=== PATIENT | female | born 1940 ===

== ENCOUNTER 2021-07-17 20:36 | Inpatient (IN) | payer MEDICARE, OTHER ==
[~2021-07-17] VITALS: Wt 53.8 kg
[2021-07-18 05:49] LABS: BASOPHILS ABSOLUTE AUTO 0.04 K/mm3 (0.00-0.23); BASOPHILS PERCENT AUTO 0 % (0-2); EOSINOPHILS ABSOLUTE AUTO 0.03 K/mm3 (0.00-0.68); EOSINOPHILS PERCENT AUTO 0 % (0-6); Hematocrit 29.8 % (33.0-51.0); Hemoglobin 9.9 g/dL (11.5-16.0); IMMATURE GRAN ABSOLUTE AUTO 0.07 K/mm3 (0.00-0.10); IMMATURE GRAN PERCENT AUTO 1 % (0-1); LYMPHOCYTES ABSOLUTE AUTO 1.03 K/mm3 (0.84-5.20); LYMPHOCYTES PERCENT AUTO 9 % (21-46); MONOCYTES ABSOLUTE AUTO 0.59 K/mm3 (0.16-1.47); MONOCYTES PERCENT AUTO 5 % (4-13); Mean Corpuscular HGB 31.7 pg (26.0-34.0); Mean Corpuscular HGB Conc 33.2 g/dL (31.5-36.5); Mean Corpuscular Volume 96 fL (80-100); Mean Platelet Volume 9.8 fL (9.1-12.4); NEUTROPHILS ABSOLUTE AUTO 9.49 K/mm3 (1.96-9.15); NEUTROPHILS PERCENT AUTO 84 % (41-73); Platelet Count 154 K/mm3 (150-400); RDW Coefficient Variation 13.1 % (11.7-14.2); RDW Standard Deviation 46.1 fL (35.1-46.3); Red Blood Cell Count 3.12 M/mm3 (3.80-5.20); White Blood Cell Count 11.25 K/mm3 (4.00-11.30)
[2021-07-18 06:38] LABS: Alanine Aminotransfer (ALT/SGP 24 U/L (12-78); Albumin, Blood 2.1 g/dL (3.4-5.0); Albumin/Globulin Ratio 0.7 (0.8-1.8); Alk Phos 64 U/L (50-136); Anion Gap 4 mmol/L (6-16); Aspartate Aminotrans (AST/SGOT 34 U/L (12-37); Bilirubin, Total 0.4 mg/dL (0.1-1.0); Blood Urea Nitrogen 15 mg/dL (8-24); Bun/Creatinine Ratio 17.4 (12.0-20.0); CO2, Blood 27 mmol/L (21-32); Calcium, Blood 8.3 mg/dL (8.5-10.1); Chloride, Blood 113 mmol/L (98-108); Creatinine, Blood 0.86 mg/dL (0.40-1.00); Globulin, Blood 3.1 g/dL (2.2-4.0); Glomerular Filtration Rate >60 (60-); Glucose, Blood 114 mg/dL (70-99); Potassium, Blood 4.1 mmol/L (3.5-5.5); Sodium, Blood 144 mmol/L (136-145); Total Protein, Blood 5.2 g/dL (6.4-8.2)
--- NOTE | 2021-07-18 06:42 | NUR ---
NUTRITIONAL YEAST SUPERVISOR SUMMARY/ ADMISSION PATIENT IA AA DIRECT ADMIT FOR DR. VALDES. SHE WAS BROUGHT IN BY THE EMS DROWSY, LEONILA REALLY RESPONDING TO ANY COMMANDS. DR VALDES WAS INFORMED OF HER ARRIVAL AND SHE CAME IN TO ASSESS AND PUT IN SOME ORDERS. HER SON WAS AVAILABLE TO ANSWER QUESTIONS. SHE WAS KEPT COMFORTABLE. VITALS WERE CHECKED AND RECORDED. NOT MAKING URINE AND SHE WAS BLADDER SCANNED AND >400MLS WAS GOTTEN AT THE 2ND ATTEMPT. MD INFORMED AND SAID IT WAS OK FOR STRAIGHT CATH, AND TO REASSESS AGAIN AFTER 6HRS. NO OTHER COMPLAINT AT THIS TIME.
--- NOTE | 2021-07-18 18:44 | NUR ---
PATIENT IS NON VERBAL, SMILES WHEN GOING TO ROOM. SPEECH EVAL ORDERED BY PROVIDER. NEW DIET ORDER IN PLACE. PT HAS 1 FULL WET DIAPER BEGINNING OF SHIFT AND A SECOND 1 FULL WET DIAPER. BLADDER SCAN 157 ML. Q2 TURN, BED LOWEST POSITION, ORAL SWAB.FAMILY AT BEDSIDE NO ACUTE CHANGES. NO SIGNS OF DISTRESS. REPORT GIVEN TO HEEL BOOM OPERATOR NURSE.
--- NOTE | 2021-07-19 04:44 | NUR ---
NURSING UNIT MANAGER SUMMARY PATIENT HAD A FAIR SHIFT. SHE HAS LOW GRADE FEVER OF WHICH SHE WAS GIVEN TYLENOL, AND COVERS REDUCED. OTHERWISE HER V/S WERE STABLE. WILL CONTINUE TO MONITOR HER.
[2021-07-19 08:40] LABS: BASOPHILS ABSOLUTE AUTO 0.05 K/mm3 (0.00-0.23); BASOPHILS PERCENT AUTO 1 % (0-2); EOSINOPHILS ABSOLUTE AUTO 0.05 K/mm3 (0.00-0.68); EOSINOPHILS PERCENT AUTO 1 % (0-6); Hematocrit 26.9 % (33.0-51.0); Hemoglobin 8.7 g/dL (11.5-16.0); IMMATURE GRAN ABSOLUTE AUTO 0.04 K/mm3 (0.00-0.10); IMMATURE GRAN PERCENT AUTO 1 % (0-1); LYMPHOCYTES ABSOLUTE AUTO 1.26 K/mm3 (0.84-5.20); LYMPHOCYTES PERCENT AUTO 15 % (21-46); MONOCYTES ABSOLUTE AUTO 0.49 K/mm3 (0.16-1.47); MONOCYTES PERCENT AUTO 6 % (4-13); Mean Corpuscular HGB 31.2 pg (26.0-34.0); Mean Corpuscular HGB Conc 32.3 g/dL (31.5-36.5); Mean Corpuscular Volume 96 fL (80-100); NEUTROPHILS ABSOLUTE AUTO 6.61 K/mm3 (1.96-9.15); NEUTROPHILS PERCENT AUTO 78 % (41-73); Platelet Count 136 K/mm3 (150-400); RDW Coefficient Variation 12.9 % (11.7-14.2); RDW Standard Deviation 45.7 fL (35.1-46.3); Red Blood Cell Count 2.79 M/mm3 (3.80-5.20)
--- NOTE | 2021-07-19 16:22 | NUR ---
SHIFT SUMMARY PATIENT IS ALERT AND ORIENTED TO SELF ONLY. PATIENT IS NONVERBAL AND SMILES WHEN PROVIDING CARE. HAS VISITED AND ASSISTS WITH CARE. PATIENT HAS HAD A COUPLE OF WET DIAPERS THIS SHIFT AND A SMALL BOWEL MOVEMENT. PATIENT NEEDS Q2 TURNS AND REQUIRES 2 PEOPLE TO MOVE PATIENT. NO ACUTE EVENTS THIS SHIFT. VITAL SIGNS REVIEWED. CALL LIGHT IN REACH. WILL MONITOR UNTIL SHIFT CHANGE.
--- NOTE | 2021-07-20 03:56 | NUR ---
PLATE PAINTER SUMMARY PATIENT STILL NOT ABLE TO EXPRESS NEEDS JUST YET BUT WAS ABLE TO TAKE MEDS. HER VITALS ARE STABLE. WILL CONTINUE TO MONITOR HER.
[2021-07-20 05:27] LABS: BASOPHILS ABSOLUTE AUTO 0.04 K/mm3 (0.00-0.23); BASOPHILS PERCENT AUTO 0 % (0-2); EOSINOPHILS ABSOLUTE AUTO 0.06 K/mm3 (0.00-0.68); EOSINOPHILS PERCENT AUTO 1 % (0-6); Hematocrit 29.3 % (33.0-51.0); Hemoglobin 9.4 g/dL (11.5-16.0); IMMATURE GRAN ABSOLUTE AUTO 0.06 K/mm3 (0.00-0.10); IMMATURE GRAN PERCENT AUTO 1 % (0-1); LYMPHOCYTES ABSOLUTE AUTO 1.15 K/mm3 (0.84-5.20); LYMPHOCYTES PERCENT AUTO 11 % (21-46); MONOCYTES ABSOLUTE AUTO 0.72 K/mm3 (0.16-1.47); MONOCYTES PERCENT AUTO 7 % (4-13); Mean Corpuscular HGB 31.2 pg (26.0-34.0); Mean Corpuscular HGB Conc 32.1 g/dL (31.5-36.5); Mean Corpuscular Volume 97 fL (80-100); Mean Platelet Volume 10.2 fL (9.1-12.4); NEUTROPHILS ABSOLUTE AUTO 8.29 K/mm3 (1.96-9.15); NEUTROPHILS PERCENT AUTO 80 % (41-73); Platelet Count 194 K/mm3 (150-400); RDW Coefficient Variation 12.9 % (11.7-14.2); RDW Standard Deviation 45.6 fL (35.1-46.3); Red Blood Cell Count 3.01 M/mm3 (3.80-5.20); White Blood Cell Count 10.32 K/mm3 (4.00-11.30)
[2021-07-20 06:23] LABS: Anion Gap 10 mmol/L (6-16); Blood Urea Nitrogen 16 mg/dL (8-24); Bun/Creatinine Ratio 20.7 (12.0-20.0); CO2, Blood 23 mmol/L (21-32); Calcium, Blood 8.2 mg/dL (8.5-10.1); Chloride, Blood 112 mmol/L (98-108); Creatinine, Blood 0.77 mg/dL (0.40-1.00); Glomerular Filtration Rate >60 (60-); Glucose, Blood 119 mg/dL (70-99); Potassium, Blood 3.4 mmol/L (3.5-5.5); Sodium, Blood 145 mmol/L (136-145)
--- NOTE | 2021-07-20 16:26 | NUR ---
SHIFT SUMMARY PATIENT IS NONVERBAL MOST OF THE TIME, WITH OCCASIONAL YES OR NO'S. PATIENT'S SPOUSE HAS BEEN PRESENT WITH THE PATIENT FOR MOST OF THIS SHIFT. THE PATIENT CONTINUES TO HAVE A SLIGHT FEVER. MEDICATED WITH TYLENOL PER EMAR, AND NON-PHARMACOLOGIC INTERVENTIONS WELL. PATIENT WORKED WITH SPEECH THERPAY THIS SHIFT. PLAN IS TO POSSIBLY DC BACK [facility] TOM[facility]. WILL CONTINUE TO CARE FOR THE PATIENT UNTIL SHIFT REPORT IS GIVEN TO THE ONCOMING NURSE.
--- NOTE | 2021-07-20 18:44 | NUR ---
SPOUSE [place] CONCERNED ABOUT [place] IF THE PATIENT IS DC'D. THE SPOUSE SAYS EARLIER DISCHARGE WOULD BE MOST CONVENIENT.
--- NOTE | 2021-07-21 05:05 | NUR ---
SUMMARY: PT ORIENTED TO SELF AND WAKEFUL TO VOICE BUT SLEPT MAJORITY OF NOCTE. SHE IS MOSTLY NONVERBAL BUT OCC ANSWERED SOME YES/NO Q'S. TURN SCHEDULE MAINTAINED AND ATTENDS CHANGE PRN FOR INCONTINENCE OF BOWEL AND BLADDER THIS SHIFT. IV ABX RECIEVED THEN SL. NO ACUTE CHANGES, VSS/AFEBRILE. PT TITRATED TO RA FOR SPO2>90%. PLAN IS TO POSSIBLY D/C BACK TO [facility] TODAY AND PT'S PREFERS THIS OCCUR EARLIER IN MORNING IF POSSIBLE D/T WINTER WEATH[place]. WILL ENSURE DAY STAFF ARE AWARE.
[2021-07-21 11:37] LABS: BASOPHILS ABSOLUTE AUTO 0.05 K/mm3 (0.00-0.23); BASOPHILS PERCENT AUTO 1 % (0-2); EOSINOPHILS ABSOLUTE AUTO 0.13 K/mm3 (0.00-0.68); EOSINOPHILS PERCENT AUTO 1 % (0-6); Hematocrit 25.1 % (33.0-51.0); Hemoglobin 8.3 g/dL (11.5-16.0); IMMATURE GRAN ABSOLUTE AUTO 0.08 K/mm3 (0.00-0.10); IMMATURE GRAN PERCENT AUTO 1 % (0-1); LYMPHOCYTES ABSOLUTE AUTO 1.35 K/mm3 (0.84-5.20); LYMPHOCYTES PERCENT AUTO 15 % (21-46); MONOCYTES ABSOLUTE AUTO 0.69 K/mm3 (0.16-1.47); MONOCYTES PERCENT AUTO 8 % (4-13); Mean Corpuscular HGB 31.9 pg (26.0-34.0); Mean Corpuscular HGB Conc 33.1 g/dL (31.5-36.5); Mean Corpuscular Volume 97 fL (80-100); Mean Platelet Volume 9.9 fL (9.1-12.4); NEUTROPHILS ABSOLUTE AUTO 6.76 K/mm3 (1.96-9.15); NEUTROPHILS PERCENT AUTO 75 % (41-73); NRBC ABSOLUTE 0.02 K/mm3 (0.00-0.02); NRBC Auto 0.2 /100 WBC (0.0-0.2); Platelet Count 240 K/mm3 (150-400); RDW Standard Deviation 45.1 fL (35.1-46.3); White Blood Cell Count 9.06 K/mm3 (4.00-11.30)
--- NOTE | 2021-07-21 18:32 | NUR ---
SHIFT SUMMARY: PT ALERT, UNABLE TO ASSESS ORIENTATION. SPEECH IS GARBLED WHICH IS BASELINE DUE TO ADVANCED DEMENTIA. PT HAD LOOSE STOOLS THIS AM AND STAFF AT [facility] REPORTED SHE IS LACTOSE INTOLERANT. DIET CHANGED TO REFLECT THIS AND BY AFTERNOON SHE HAD FORMED BROWN STOOLS. PT HAD LOW GRADE FEVER IN WHICH TYLENOL WAS EFFECTIVE IN TREATING. AFEBRILE REST OF SHIFT. PT ATE WELL AND DRANK FLUIDS T/OUT THE DAY.
--- NOTE | 2021-07-22 04:12 | NUR ---
POLO REMAINED STABLE DURING THE ASSOCIATE PROFESSOR, HAD A BM. SHE WAS ADMINISTERED HER AB AND OTHER MEDS. SHE IS STILL ON 4L AND SPO2 REMAINED IN THE 90'S
[2021-07-22 05:58] LABS: BASOPHILS ABSOLUTE AUTO 0.03 K/mm3 (0.00-0.23); BASOPHILS PERCENT AUTO 0 % (0-2); EOSINOPHILS PERCENT AUTO 1 % (0-6); Hematocrit 23.1 % (33.0-51.0); Hemoglobin 7.5 g/dL (11.5-16.0); IMMATURE GRAN PERCENT AUTO 1 % (0-1); LYMPHOCYTES ABSOLUTE AUTO 1.02 K/mm3 (0.84-5.20); LYMPHOCYTES PERCENT AUTO 12 % (21-46); MONOCYTES ABSOLUTE AUTO 0.55 K/mm3 (0.16-1.47); MONOCYTES PERCENT AUTO 6 % (4-13); Mean Corpuscular HGB 31.3 pg (26.0-34.0); Mean Corpuscular HGB Conc 32.5 g/dL (31.5-36.5); Mean Corpuscular Volume 96 fL (80-100); NEUTROPHILS ABSOLUTE AUTO 6.76 K/mm3 (1.96-9.15); NEUTROPHILS PERCENT AUTO 79 % (41-73); NRBC ABSOLUTE 0.02 K/mm3 (0.00-0.02); NRBC Auto 0.2 /100 WBC (0.0-0.2); Platelet Count 253 K/mm3 (150-400); RDW Coefficient Variation 12.8 % (11.7-14.2); RDW Standard Deviation 44.8 fL (35.1-46.3); White Blood Cell Count 8.56 K/mm3 (4.00-11.30)
--- NOTE | 2021-07-22 07:26 | NUR ---
CDIFF TEST DC'D DUE TO FORMED STOOLS SINCE LACTOSE FREE DIET GIVEN. STOOL DOES NOT HAVE FOUL SMELL IS FORMED AND BROWN COLORED.
[2021-07-22] MEDS ORDERED: ACET325 PO (13:23)
[2021-07-22] MEDS ORDERED: BISA10S PR (13:24)
[2021-07-22] MEDS ORDERED: MIRALAX1710 PO (13:24)
[2021-07-22] MEDS ORDERED: VISBIOME 112.51 EACH PO (13:26)
[2021-07-22] MEDS ORDERED: AZIT250 PO (13:26)
[2021-07-22] MEDS ORDERED: CEFD300 PO (13:27)
[2021-07-22] MEDS ORDERED: DOCU100 PO (13:29)
--- NOTE | 2021-07-22 14:35 | NUR ---
IV ACCESS ALREADY IN POST ASSUMING CARE FOR PT IN R WRIST.
--- NOTE | 2021-07-22 16:57 | NUR ---
DISCHARGE SUMMARY: PT ALERT AND IN NO APPARENT DISTRESS AT TIME OF DISCHARGE. REPORT CALLED TO ARUNA RN AT [facility]. SHE VERIFIED DISCHARGE ORDERS WERE RECEIVED VIA FAX AND SHE HAD NO QUESTIONS ABOUT ORDERS. ARUNA VERIFIED ED ARRIVED TO FACILITY TO SET UP OXYGEN. PT ATTENDS CHANGED PRIOR TO DC AND DRESSED IN HER CLOTHES. PT IV REMOVED. PT TRANSFERRED TO [facility] FOR TRANSPORT VIA [facility]. BELONGINGS PACKED UP INCLUDING DOLL BELLE AND GIVEN TO AIRCRAFT SERVICER WHO WAS INSTRUCTED TO GIVE TO FACILITY. PT SENT WITH TANK OF O2 FROM [facility] [place] ON 2 LPM VIA [place]. FAMILY AWARE OF DC TIME.
== END 2021-07-22 16:35 | disposition home or self-care (01) | DRG 871 ==
LOC: MEDS 20:36
PROVIDERS: ADMIT Internal Medicine
DX: A41.51 Sepsis due to Escherichia coli [E. coli] (principal); J96.01 Acute respiratory failure with hypoxia; J18.9 Pneumonia, unspecified organism; I21.4 Non-ST elevation (NSTEMI) myocardial infarction; N39.0 Urinary tract infection, site not specified; F03.91 Unspecified dementia, unspecified severity, with behavioral disturbance; E87.2 Acidosis; J98.11 Atelectasis; K59.09 Other constipation; R65.20 Severe sepsis without septic shock; Z66 Do not resuscitate; Z51.5 Encounter for palliative care; E78.5 Hyperlipidemia, unspecified; K21.9 Gastro-esophageal reflux disease without esophagitis; M54.50 Low back pain, unspecified; Z99.3 Dependence on wheelchair; Z87.891 Personal history of nicotine dependence; Z79.899 Other long term (current) drug therapy
CPT/HCPCS: 36415; 71045; 80048; 80053; 83605; 84484; 85025; 87040; 92526; 92610; 93306; 94760; 94761; A9270; J0456; J0696; J1650; J7030; J7050